=== PATIENT | female | born 1960 | race Caucasian/White ===

== ENCOUNTER 2020-06-20 16:02 | Outpatient (CLI) | payer BC | END 2020-06-20 16:03 | disposition home or self-care (01) | LOC: CSHMRI 16:02 | PROVIDERS: ATTEND Physical Medicine & Rehabilitation | DX: M54.2 Cervicalgia (principal); R53.1 Weakness; M47.812 Spondylosis without myelopathy or radiculopathy, cervical region | CPT/HCPCS: 72141 ==

== ENCOUNTER 2022-11-07 09:15 | Outpatient (CLI) | payer OTHER | END 2022-11-07 09:16 | disposition home or self-care (01) | LOC: CSHMAMMO 09:15 | PROVIDERS: ATTEND Internal Medicine | DX: Z12.31 Encounter for screening mammogram for malignant neoplasm of breast (principal) | CPT/HCPCS: 77063; 77067 ==

== ENCOUNTER 2024-02-11 13:06 | Outpatient (CLI) | payer OTHER | END 2024-02-11 13:07 | disposition home or self-care (01) | LOC: CSHULT 13:06 | PROVIDERS: ATTEND Internal Medicine | DX: N18.32 Chronic kidney disease, stage 3b (principal) | CPT/HCPCS: 76770 ==

== ENCOUNTER 2025-01-07 07:28 | Day surgery (SDC) | payer BC ==
[2025-01-05 15:06] VITALS: BMI 42.0
[2025-01-07] MEDS ORDERED: Oxymetazoline HCl 0.05% (15 ML) ONE (08:55)
[2025-01-07] MEDS ORDERED: AFRIN NASAL MIST 15 ML BOT ONE (09:07)
[2025-01-07] MEDS ORDERED: PROPOFOL 20 ML ONE (09:51)
[2025-01-07] MEDS ORDERED: Lidocaine 1% PF 5 ML VIAL ONE (09:51)
[2025-01-07] MEDS ORDERED: Rocuronium Bromide 10 MG/ML (10ML VIAL) ONE (09:51)
[2025-01-07] MEDS ORDERED: Ondansetron PF 4 MG/2 ML Vial ONE (09:51)
[2025-01-07] MEDS ORDERED: SUGAMMADEX SODIUM 200 MG/2 ML VIAL ONE (09:51)
== END 2025-01-07 15:00 | disposition home or self-care (01) ==
LOC: CSHSDC 07:28
PROVIDERS: ATTEND Otolaryngology Plastic Surgery within the Head & Neck
PROC: 099Q8ZZ Drainage of Right Maxillary Sinus, Via Natural or Artificial Opening Endoscopic (ICD-10-PCS; principal; 2025-01-07)
PROC: 09SM0ZZ Reposition Nasal Septum, Open Approach (ICD-10-PCS; principal; 2025-01-07)
PROC: 099U8ZZ Drainage of Right Ethmoid Sinus, Via Natural or Artificial Opening Endoscopic (ICD-10-PCS; principal; 2025-01-07)
DX: J32.8 Other chronic sinusitis (principal); J34.3 Hypertrophy of nasal turbinates; J34.2 Deviated nasal septum; H90.3 Sensorineural hearing loss, bilateral; J38.6 Stenosis of larynx; I10 Essential (primary) hypertension; I25.10 Atherosclerotic heart disease of native coronary artery without angina pectoris; F41.9 Anxiety disorder, unspecified; E78.5 Hyperlipidemia, unspecified; F32.A Depression, unspecified; E11.9 Type 2 diabetes mellitus without complications; E03.9 Hypothyroidism, unspecified; Z87.891 Personal history of nicotine dependence; E66.9 Obesity, unspecified; Z68.41 Body mass index [BMI] 40.0-44.9, adult; Z88.5 Allergy status to narcotic agent; Z79.84 Long term (current) use of oral hypoglycemic drugs; Z79.85 Long-term (current) use of injectable non-insulin antidiabetic drugs; Z79.899 Other long term (current) drug therapy
CPT/HCPCS: 88305; J1100; J2250; J2405; J2704; J3010